=== PATIENT | female | born 1930 | race Caucasian/White ===

== ENCOUNTER → 2018-01-15 | Outpatient (CLI) | payer OTHER ==
[~2018-01-15] MED LIST: ADVIL PM PO; ALBU90OI INH; ASPI81EC PO; BENA20; BUDE6HFA INH; BUTCHERS BROOM PO; CALCIUM; CITRACAL PO; FLUV40; HYDCHL12.5; IBUP400 PO; LORA10ER PO; LOSARTAN/HCTZ 100/25 PO; METO50ER; MSM1000; MULVITA; NAPR550 PO; OMEGA 3 1200MG PO; OMEP20ER PO; PROACE100 PO; PYRI100 PO; PYRI50; RXNAPNA550 PO; RXPROACE PO; SIMV40 PO; TOCO400; VIT PO
== END ==
LOC: PLD 12:16 → LAB SHORT 12:16
DX: C44.629 Squamous cell carcinoma of skin of left upper limb, including shoulder (principal)
CPT/HCPCS: 88305

== ENCOUNTER → 2018-03-25 | Outpatient (CLI) | payer OTHER ==
[~2018-03-25] MED LIST changes: +Advair Hfa 230-12 GM; +GENPREOPSU; +LOSARTAN-HCTZ1 EAC1; +NAPR220; +Voltaren100 GM
== END ==
LOC: LAB EV 10:07 → LAB SHORT 10:07
DX: R35.0 Frequency of micturition (principal)
CPT/HCPCS: 87086

== ENCOUNTER 2018-04-01 11:59 | Day surgery (SDC) | payer OTHER ==
[~2018-04-01] VITALS: Ht 154.9 cm; Wt 68.5 kg
== END 2018-04-01 13:43 | disposition home or self-care (01) ==
LOC: ORSCSDS 11:59
DX: M20.41 Other hammer toe(s) (acquired), right foot (principal); M20.5X9 Other deformities of toe(s) (acquired), unspecified foot; Z53.9 Procedure and treatment not carried out, unspecified reason
CPT/HCPCS: J1100; J2405; J7120

== ENCOUNTER 2019-09-26 12:27 | Day surgery (SDC) | payer OTHER ==
[~2019-09-26] VITALS: Ht 154.9 cm; Wt 68.1 kg
[~2019-09-26 12:27] MED LIST changes: +Aspir 8181 MG PO; +BUTCHERS BROOM; +CLARITIN10 MG PO; +FLUT1DIS5 INH; +GENPREOPSU RIGHTEYE; +LOSARTAN-HCTZ1 EAC1 PO; +Multivitamin1 EAC1 PO; +NAPR220 PO; +Prilosec Otc20 MG PO; +Simvastatin40 MG PO; +VOLTAREN100 GM
== END 2019-09-26 16:05 | disposition home or self-care (01) ==
LOC: ORSCSDS 12:27
PROVIDERS: Podiatrist Foot & Ankle Surgery
PROC: 0QSQ04Z Reposition Right Toe Phalanx with Internal Fixation Device, Open Approach (ICD-10-PCS; principal; 2019-09-26 14:00)
PROC: 0QPN04Z Removal of Internal Fixation Device from Right Metatarsal, Open Approach (ICD-10-PCS; principal; 2019-09-26 14:00)
DX: T84.84XA Pain due to internal orthopedic prosthetic devices, implants and grafts, initial encounter (principal); M21.611 Bunion of right foot; I10 Essential (primary) hypertension; E78.00 Pure hypercholesterolemia, unspecified; Z87.891 Personal history of nicotine dependence; G47.33 Obstructive sleep apnea (adult) (pediatric); Z79.899 Other long term (current) drug therapy
CPT/HCPCS: C1713; J0171; J1100; J2250; J2405; J2704; J3010; J3370; J7120

== ENCOUNTER → 2020-11-15 | Outpatient (CLI) | payer OTHER ==
[~2020-11-15] MED LIST changes: +FLUT1DIS2 INH; +HYDCHL25 PO; +Klor-Con M1010 MEQ PO; +LOSA50 PO; +MULTIPLE VITAM1 EACH PO; +Ocuvite Preser1 EACH PO; +VITAMIN D-32000 UNIT PO; +ZOCOR20 MG PO
== END ==
LOC: LAB SHORT 14:18 → LAB 14:18
DX: D48.5 Neoplasm of uncertain behavior of skin (principal); Z88.4 Allergy status to anesthetic agent; Z88.1 Allergy status to other antibiotic agents; Z88.0 Allergy status to penicillin
CPT/HCPCS: 88305